=== PATIENT | female | born 1995 | race Caucasian/White ===

== ENCOUNTER 2020-02-13 12:26 | Inpatient (IN) | payer SELFPAY ==
[2020-02-13] VITALS (37 sets, daily range): BP systolic 116–176; BP diastolic 76–108; PULSE 74–100; TEMP 98.3
--- NOTE | 2020-02-13 13:00 | NUR ---
1235- Pt arrives on unit ambulatory with . Pt sent to hospital by Zoe Reza, Tack Puller Machine with elevated BP. Pt into bathroom to change into gown. 1244- Pt into bed, EFM and TOCO on and tacing. Pt denies VB, LOF, UCs. +FM. Pt states Zoe has been monitoring elevated BPs for the past week. Has had labs drawn. Pt denies, CABRERA, dizziness, light headedness, RUQ pain. Pt has 1+ pitting edema to BLE, slightly more on left. Pt states this has improved over the past few days. Pt brought records and lab results with her today from Zoe. Assessment completed, will monitor BP. Lab at bedside to obtain ordered labs.
[2020-02-13 13:18] LABS: COLLECTION METHOD CLEAN CATCH
[2020-02-13] MEDS ORDERED: ECHINACEA PURPU80 MG PO (13:18)
[2020-02-13] MEDS ORDERED: VITAMINC250CH (13:19)
[2020-02-13] MEDS ORDERED: GARLIC100 MG PO (13:19)
[2020-02-13] MEDS ORDERED: [UNRECOGNIZED DRUG - CODE] (13:21)
[2020-02-13] MEDS ORDERED: [UNRECOGNIZED DRUG - OTHER] (13:21)
[2020-02-13] MEDS ORDERED: PRENATAL (13:22)
[2020-02-13 13:23] LABS: BASO % 0.6 % (0.0-2.0); EOS # 0.1 (0.0-0.7); EOS % 1.7 % (0-4.0); GRAN # 3.6 (1.4-6.5); GRAN % 66.9 % (42.2-75.2); HEMOGLOBIN 11.8 g/dl (12.5-16.0); LYMPH # 1.3 (1.2-3.4); LYMPH % 23.4 % (20.0-51.0); MEAN CELL VOLUME 92 fl (80.0-100.0); MEAN CORPUSCULAR HEMOGLOBIN 31 pg (27.0-31.0); MEAN CORPUSCULAR HGB CONC 33 g/dl (33.0-37.0); MEAN PLATELET VOLUME 12.4 fl (7.4-10.4); MONO # 0.4 (0.1-0.6); PLATELET COUNT 159 K/mm3 (130-400); RED BLOOD COUNT 3.84 M/mm3 (4.10-5.30); REDCELL DISTRIBUTION WIDTH-CV 13.4 % (11.5-14.5)
[2020-02-13 13:26] LABS: HEMATOCRIT 35.4 % (37.0-47.0)
[2020-02-13 13:30] LABS: MUCOUS Present /lpf; PH 6 (5-8); URINE APPEARANCE Hazy; URINE BACTERIA None Seen /hpf; URINE BILIRUBIN Negative (NEGATIVE); URINE BLOOD Negative (NEGATIVE); URINE COLOR Yellow; URINE GLUCOSE Negative (NEGATIVE); URINE KETONE Negative (NEGATIVE); URINE LEUKOCYTE ESTERASE Trace (NEGATIVE); URINE NITRATE Negative (NEGATIVE); URINE PROTEIN(semi-quant) 3+ (NEGATIVE); URINE UROBILINOGEN Negative (NEGATIVE)
[2020-02-13 13:35] LABS: ALBUMIN 3.4 gm/dL (3.5-5.0); BILIRUBIN,TOTAL 0.3 mg/dL (0.0-1.0); CALCIUM 8.4 mg/dL (8.4-10.2); CREATININE, serum 0.68 (0.52-1.25); POTASSIUM 4.2 mmol/L (3.4-5.0); TOTAL PROTEIN 6.2 gm/dL (6.4-8.2)
--- NOTE | 2020-02-13 14:00 | NUR ---
1330- Dr Lyn on unit, updated on Pt status. reviews paperwork provided by Pt. Waiting for pending lab results. 1341- Dr Lyn and this RN at bedside. MD discusses Pt status. Questions encouarged and answered. Pt and spouse would like to discuss options. After some further discussion, Pt agrees to stay and start induction. Dr Lyn discusses that Pitocin can be started slow and then turned off later if Pt kicks in on her own. Pt agrees with this plan.
--- NOTE | 2020-02-13 15:58 | NUR ---
1500 report taken from Sussy CHIRINOS to assume care of this patient at this time. IV started in left hand and LR hung at this time. 1515 pitocin started at 2mu per protocol. and Pen G 5 hung per protocol for GBS+. all consents signed by patients .
--- NOTE | 2020-02-13 17:08 | NUR ---
1700 DR PARRA AT BEDSIDE TO DISCUSS AND TALK ABOUT INDUCTION WITH PATIENT AND .
--- NOTE | 2020-02-13 20:20 | NUR ---
2020 PT STARTING TO FEEL SOME OF HER CONTRACTIONS. DR PARRA IN TO VISIT. PT AND VERY RESISTENT TO ANY SUGGESTIONS CONCERNING AROM OR MEDICATION FOR ELEVATED B/P'S. REPOSITIONED TO TO REST.
[2020-02-14] VITALS (80 sets, daily range): BP systolic 129–179; BP diastolic 76–110; PULSE 68–162; TEMP 98.1–99.2
--- NOTE | 2020-02-14 01:40 | NUR ---
0140 TO HANDS AND KNEES PER PT REQUEST FOR COMFORT. BREATHING WELL WITH CONTRACTIONS.
--- NOTE | 2020-02-14 03:00 | NUR ---
0300 SVE /-2. LARGE BOW FELT. PITOCIN OFF PER DR PARRA ORDER. PT REQUESTING INTERMITTENT MONITERING.
--- NOTE | 2020-02-14 03:45 | NUR ---
0345 DR PARRA CALLED IN FOR PROGRESS REPORT. INFORMED OF PT SVE AND PITOCIN TURNED OFF AT 0300. ORDER GIVEN TO RESTART PITOCIN PER PROTOCOL AT 0500 IF CONTRACTIONS HAVE SPACED OUT AND LESSENED IN INTENSITY. 0355 EFM OFF PER PT REQUEST TO HAVE INTERMITTENT MONITERING.
--- NOTE | 2020-02-14 06:00 | NUR ---
0600 CONTRACTIONS PATTERN BECOMING EVERY FOUR TO SIX MINUTES. PT SLEEPING BETWEEN CONTRACTIONS. PITOCIN RESTARTED AT 2MU/MIN.
--- NOTE | 2020-02-14 09:49 | NUR ---
0930 DR PARRA AT BEDSIDE TO DISCUSS ALL OPTIONS WITH PATIENT AND . PATIENT HAS DECIDED TO LET DR PARRA AROM. 0935 SVE /-2. AROM WITH AMNIOHOOK,MODERATE AMOUNT CLEAR FLUID NOTED. NO ODOR. PITOCIN TURNED OFF PER DR PARRA ORDER. WILL LET PATIENT AMBULATE AND SHOWER.
--- NOTE | 2020-02-14 10:13 | NUR ---
1000 ALL IVF AND PITOCIN OFF AT THIS TIME, PER DR PARRA ORDER. PATIENT UP TO SHOWER AND WALK IN HALLS.
--- NOTE | 2020-02-14 10:39 | NUR ---
1030 UP AMBULATE IN HALLS WITH
--- NOTE | 2020-02-14 11:39 | NUR ---
1115 PATIENT RESTS IN BED BREATHS/CRIES THROUGH EACH CONTRACTION. BP 178/97. PATIENT WANTS TO GET UP TO SHOWER. EXPLAINED TO PATIENT THAT THIS NURSE DOES NOT FEEL COMFORTABLE LETTING HER OUT OF BED WITH HIGH BLOOD PRESSURES. TALK WITH PATIENT AND ABOUT APRESOLINE MEDICATION TO HELP WITH LOWERING BLOOD PRESSURE. PATIENT STATES SHE DOES NOT WANT ANY ADDITIONAL MEDS GIVEN AT THIS TIME. DOES NOT WANT BABY TO GET ANY MEDISCATIONS EITHER. THIS NURSE EXPLAINS TO PATIENT THAT IT IS NOT SAFE FOR HER TO GET OUT OF BED WITH HIGH BLOOS PRESSURES. DR PARRA CALLED AND UPDATED ON ALL ABOVE INFORMATION. NO NEW ORDERS AT THIS TIME OTHER THEN NOT SAFE FOR PATIENT OUT OF BED.
--- NOTE | 2020-02-14 11:52 | NUR ---
1150 PATIENT FEELS PRESSURE BUT DOES NOT WANT A VAGINAL EXAM DONE AT THIS TIME.
--- NOTE | 2020-02-14 12:51 | NUR ---
1225 PATIENT FEELS PRESSURE. DOES NOT REALLY WANT A VAGINAL EXAM DUE TO BEING RUPTURED. EDUACATED PATIENT AND THAT THIS IS ONLY WAY WE CAN KNOW IF DILATION HAS CHANGED. AGREED TO VAGINAL EXAM THIS TIME. SVE 7/100/-1, LARGE AMOUNT OF CLEAR FLUID NOTED WITH EXAM. PATIENT NEEDS TO GO TO BATHROOM. INSTRUCTED TO AMBULATE TO BED AND BACK ONLY DUE TO BP 173/104. THIS NURSE OFFERED TO GIVE APPRESOLINE AGAIN TO HELP LOWER BP. PATIENT AND AGAIN REFUSED FOR ANY ADDITIONAL MEDS GIVEN AT THIS TIME. 1240 PATIENT UP TO BATHROOM VOIDS WITHOUT DIFFICULTY AND ASSISTED BACK TO BED AT THIS TIME. PATIENT REMAINS VERY UNCOMFORTABLE AND CRIES THROUGH EACH CONTRACTION. ENCOURAGED PATIENT TO FIND A FOCAL POINT AND CONCENTRATE ON THAT TI HELP GET THROUGH EACH CONTRACTION. AT BEDSIDE.
--- NOTE | 2020-02-14 13:38 | NUR ---
1305 PATIENT VOMITS AT THIS TIME 1325 PATIENT REST ON LEFT SIDE AT THIS TIME. BP 148/84. EFM OFF AT THIS TIME PER PATIENT REQUEST. FHT 130 AND BABY HAS BEEN VERY ACTIVE
--- NOTE | 2020-02-14 14:17 | NUR ---
1415 PATIENT UP TO SHOWER PER PATIENT REQUEST AND DR ORDER. BP 159/100. BUT LAST 3 PRESSURES BETTER. 1330 148/84 1345 146/88 1355 160/98
--- NOTE | 2020-02-14 15:14 | NUR ---
1434 PATIENT CALLS THIS NURSE TO ROOM. PATIENT HAS DECIDED TO ALLOW FOR APRESOLINE 10 MG IV GIVEN NOW TO HELP WITH BLOOD PRESSURE TO HOPEFULLY ALLOW FOR INCREASE ACTIVITY FOR PATIENT AND INCREASE POSTIONS CHANGES.
--- NOTE | 2020-02-14 15:17 | NUR ---
1450 ASSIST PATIENT TO BED. EFM ON FHT 130,BABY VERY ACTIVE. CONTRACTIONS 2 MIN AND PALPATE FIRM, PATIENT BREATHS THROUGH EACH CONTRACTIONS. PEN G 2.5 MU HUNG AND APRESOLINE 10 MG IV GIVEN AT THIS TIME PER DR. AND PATIENTS REQUEST. SVE UNCHANGED. DR PARRA CALLED WITH ALL ABOVE INFORMATION. ORDERS TO MONITOR FOR 15 MORE MINUTES AND THEN ALLOW PATIENT TO AMBULATE IN HALLS
--- NOTE | 2020-02-14 15:44 | NUR ---
1530 PATIENT TO KNEE CHEST POSITION PER REQUEST. TOLERATES WELL. CONTINUES TO BREATH THROUGH CONTRACTIONS. PATIENT IS EXHAUSTED PER
--- NOTE | 2020-02-14 16:21 | NUR ---
1610 DR PARRA AT BEDSIDE SVE /0. PATIENT UP TO BIRTHING BALL. CONITINUES TO BREATH THROUGH CONTRACTIONS WITH AT BEDSIDE
--- NOTE | 2020-02-14 16:31 | NUR ---
1630 PATIENT UP AMBULATING PER DR ORDER AND PATIENT REQUEST.
--- NOTE | 2020-02-14 17:32 | NUR ---
1700 UP AMBULATE IN HALLS. 1715 DR PARRA AT BEDSIDE SVE 9/100/0. DR PARRA DISCUSSES OPTIONS WITH PATIENT AND AT THIS TIME. BP 177/106. PATIENT DOES NOT WANT ANY MORE BLOOD PRESSURE MEDS AT THIS TIME. DR PARRA STATES WILL CONTINUE TO MONITOR BLOOD PRESSURE FOR NOW. PATIENT REPOSITIONED TO LEFT SIDE. PATIENT BREATHS THROUGH CONTRACTIONS WITH AT BEDSIDE. VARIABLES NOTED WITH CONTRACTIONS.
--- NOTE | 2020-02-14 19:56 | NUR ---
pt. requests to be off the monitor at this time, per her plan of limited monitors. pt. taken off monitors. [facility] discussed with patient that in 30 minutes when I come to change her position to the other side in 30 minutes, that monitors will come back on to check on fhr. patient agreed to this. call light within reach.
--- NOTE | 2020-02-14 20:30 | NUR ---
RN TO BEDSIDE TO HELP ASSIST PATIENT INTO RL POSITION WITH LEFT LEG UP IN THE [place]. PER AGREEMENT EARLY, EFM AND TOCO BACK ON AND TRACING. PATIENT DENIES NEEDS AT THIS TIME. CALL LIGHT WITHIN REACH.
--- NOTE | 2020-02-14 23:55 | NUR ---
RN TO BEDSIDE TO INCREASE PITOCIN FROM 8 MU TO 10 MU. PUMP WAS SET AT 2 MU INSTEAD OF 8. DISCUSSED WITH NURSES THAT THIS NURSE THOUGHT THE FATHER MAY HAVE MESSED WITH THE PUMP. RN WAS THEN ADVISED TO MAKE A NOTE ABOUT IT AND MAKE SURE TO WATCH AND BE IN THE ROOM MORE FREQUENTLY.
[2020-02-15] VITALS (77 sets, daily range): BP systolic 112–188; BP diastolic 57–118; PULSE 102–169; TEMP 98.1–99.3
--- NOTE | 2020-02-15 02:20 | NUR ---
PATIENT CALLS OUT TO USE RESTROOM. DISCUSS EPIDURAL CONCERNS WITH PATIENT AND SPOUSE. PATIENT VERBALIZES CONCERNS WITH MEDICATION CROSSING PLACENTAL BARRIER. DISCUSSED WITH PATIENT OUT THE EPIDURAL DOES NOT DIRECTLY AFFECT THE FETUS, BUT THAT THEY FETUS CAN REACT TO A MATERNAL REACTION TO THE EPIDURAL, SUCH A CHANGE IN BLOOD PRESSURE. SPOUSE CONCERN FOR EPIDURAL IS THAT IT IS NOT [facility] AND WOMEN WENT THROUGH 3-4 DAY LABORS WITHOUT MEDICINE IN THE PAST AND "WERE FINE". DISCUSSED CONCERNS WITH MATERNAL AND STRESS. SPOUSE AND PATIENT REQUESTING TO BE OFF PITOCIN AND TO WALK HALLS. ADVISED I WOULD CALL ROLES AND UPDATE HER TO THIS AND GET BACK WITH THEM.
--- NOTE | 2020-02-15 04:00 | NUR ---
RN TO BEDSIDE TO CHECK TEMPERATURE. TEMPERATURE 99.7 AXILLARY. DISCUSSED MEDICATION FOR FEVERS. PATIENT AND SPOUSE WOULD LIKE TO WAIT AND SEE IF IT CONTINUES TO CREEP UP AND THEN DECIDE. DISCUSSED RISKS. PATIENT AND SPOUSE ALSO ASKED ABOUT WHAT DR. BENITEZ SAID ABOUT TURNING PITOCIN. OFF. DISCUSSED WIT THEM THAT IT CAN BE TURNED OFF, BUT DO TO VARIABLE DECELERATIONS OCCASIONALLY, DR. BENITEZ WANTS THE PATIENT TO REMAIN ON FHR MONITORS AND SHE IS NOT ALLOWED TO WALK THE HALLS BECAUSE OF THIS WELL. THEY AGREED FOR NOW AND SAID THAT THEY WOULD LIKE TO REST WITH NO INTERRUPTIONS UNTIL THE NEXT ANTIBIOTIC IS DUE, AROUND 7:30AM, AND THEN IF BABY LOOKS OKAY, WOULD LIKE TO WALK THE HALLS FOR A AN HOUR OR SO AND THEN MAYBE TAKE A SHOWER AND THEN BE CHECKED AND IF NO CHANGE STILL, THEY WILL CONSIDER AN EPIDURAL AFTER DISCUSSING OPTIONS ABOUT "TIME FRAME" OF 24 HOURS AFTER AROM WITH DOCTOR. THEY ALSO STATED THAT IF BPS START CONTINUE TO TREND IN THE "HIGH HIGHS" THEY WILL CONSIDER SOME MEDICATION TO BRING DOWN THE BPS. STATED I WOULD DISCUSS THIS WITH ROLES TO LET HER KNOW AND THAT FOR NOW, THE PITOCIN WILL BE OFF (0411) AND SOON THE ANTIBIOTICS ARE FINISHED RUNNING, THAT I WILL INT THE PATIENT AGAIN TO GIVE HER A LITTLE MORE "FREEDOM". THEY AGREED WITH THIS. CALL LIGHT WITHIN REACH AND DENIES FURTHER NEEDS AT THIS TIME.
[2020-02-15] MEDS ORDERED: PERCOCET 325 MG1 TA2 PO (06:30)
[2020-02-15] MEDS ORDERED: MOTRIN 800800 MG/TAB PO (06:30)
--- NOTE | 2020-02-15 07:39 | NUR ---
0730 AT BEDSIDE FOR PEN G TO BE GIVEN. PATIENT UP TO BATHROOM TOLERATES WELL BUT IS EXHAUSTED AND CAN BARELY KEEP EYES OPEN. DISCUSSED PATIENT INCREASE IN HEARTRATE WITH PATIENT. PATIENT STATES" ITS FINE IM JUST EXHAUSTED". SAO2 PROBE ON. SATS 97% HR 127
--- NOTE | 2020-02-15 10:30 | NUR ---
0810 DR HANLEY AT BEDSIDE, DISCUSSING ALL OPTIONS AND RISKS WITH PATIENT AND . ALL QUESTIONS ANSWERED BY DR HANLEY AT THIS TIME. DR HANLEY AT BEDSIDE FOR 25 MINUTES TALKING WITH PATIENT. BP 174/90 HR 118. FHT 135. CONTRACTIONS EVERY 6 MIN , PATIENT BREATHS THROUGH EACH CONTRACTION.
--- NOTE | 2020-02-15 10:33 | NUR ---
0830 DR HANLEY SVE /0 AT THIS TIME. SOME SWELLING NOTED TO CERVIX BY DISCUSSED MORE OPTIONS AND RISKS
--- NOTE | 2020-02-15 11:15 | NUR ---
0905 ASKED TO TALK WITH DR HANLEY AGAIN AT THIS TIME. DR HANLEY AT BEDSIDE TO TALK AND DISCUSS OPTIONS AGAIN, REMAINS IN ROOM FOR 20 MIN.
--- NOTE | 2020-02-15 11:17 | NUR ---
0910 BP 151/100 WILL SEE WHAT NEXT BLOOD PRESSURE IS AND THEN GIVE DOSE OF APRESOLINE PER DR BHAKTA.
--- NOTE | 2020-02-15 11:21 | NUR ---
0930 BP 161/111. APRESOLINE 10 MG IV GIVEN AT THIS TIME PER DR ORDER, AND AGREED BY PATIENT AND AT THIS TIME. STATES THAT NO CHANGE IN STRENGTH OF CONTRACTIONS TODAY
--- NOTE | 2020-02-15 11:22 | NUR ---
1885 TALKING WITH BETO (SEO STRATEGIST) ON PHONE AND JOSELITO (SECURITY GUARD DISPATCHER), THEY SUGGESTED TO TRY OPEN KNEE CHEST AT THIS TIME. PATIENT POSITIONED TO OPEN KNEE CHEST AT THIS TIME.
--- NOTE | 2020-02-15 11:25 | NUR ---
0916 PATIENT POSITIONED TO SQUAT POSITION WITH CONTRACTIONS. AT BEDSIDE. PATIENT PULSE REMAINS 130-140, ENCOURAGED PATIENT TO KEEP SAO2 PROBE ON SO WE CAN MONITOR MOMS HEARTRATE ALONG WITH BABIES. PATIENT GETTING MORE EXHAUSTED AT THIS TIME.
--- NOTE | 2020-02-15 11:39 | NUR ---
1015 LR 400 CC BOLUS GIVEN TO PATINET PER DR CARRASQUILLO ORDER FOR HR 156
--- NOTE | 2020-02-15 11:42 | NUR ---
1030 PATIENT SITTING UP IN CHAIR AT THIS TIME.
--- NOTE | 2020-02-15 13:16 | NUR ---
1100 up to bathroom, stands at bedside
--- NOTE | 2020-02-15 13:22 | NUR ---
1135 PATIENT UP AND AMBULATE IN HALLS PER DR HANLEY ORDER AND PATIENT REQUEST. 1145 PATIENT BACK TO BED. DR HANLEY AT BEDSIDE TO SVE /. CERVIX MORE SWOLLEN THEN LAST EXAM. DISCUSSES ALL OPTIONS AND QUESTIONS WITH PATIENT AND AT THIS TIME.
--- NOTE | 2020-02-15 13:25 | NUR ---
1200 PATIENT AND HAVE DECIDED TO HAVE [facility] [employer]ACE EPIDURAL TO GIVE PATIENT SOME RESTS AND TO TRY ALL OPTIONS POSSIBLE FOR VAGINAL . ALENA GALVAN CALLED AT THIS TIME FOR EPIDURAL PLACEMENT. 1215 ALENA AT BEDSIDE TALKS ABOUT RISKS AND PROCEDURE FOR EPIDURAL WITH PATIENT AND . PATIENT AGREES TO EPIDURAL PLACEMENT AT THIS TIME. PATIENT UP TO BATHROOM AT THIS TIME.
--- NOTE | 2020-02-15 13:44 | NUR ---
1240 EPIDURAL PLACED AT THIS TIME. TOLERATES WELL. SEE [facility] SPECIAL EDUCATION PAR[facility] PROFESSIONAL NOTES FOR QUESTIONS.
--- NOTE | 2020-02-15 14:27 | NUR ---
1315 PITOCIN STARTED AT 2 MU PER PROTOCOL. PATIENT AND AGREED TO ALLOW FOR PIOCIN TO START AGAIN. 1320 LOVING CATH PLACED AT THIS TIME. PATIENT TO HIGH LEFT SIDE
--- NOTE | 2020-02-15 14:48 | NUR ---
1430 SVE ANT LIP/90/0 LESS SWELLING NOTED TO CERIX. DR BAE UPDATED ON SVE TO UPDATE GOODPASTURE AT THIS TIME
--- NOTE | 2020-02-15 17:30 | NUR ---
0930 DR HANLEY AT BEDSIDE. HERNÁN CANALES WILL START PUSHING NOW
--- NOTE | 2020-02-15 17:33 | NUR ---
1630 PATIENT COMPLETE WILL START PUSHING. DR HANLEY AT BEDSIDE ALONG WITH THIS NURSE. 1645 CONTINUE TO PUSHES WITH EACH CONTRACTIONS. 1653 BABY GIRL BORN VIA BY DR HANLEY. BABY TO MOMS CHEST. THICK DARK GREEN MECONIUM NOTED AT DELIVERY. 1705 DELAYED CORD CLAMPING PER PATIENT AND HUSBANDS REQUEST. CORD CLAMPED BY AND CUT BY OF PATIENT AT THIS TIME. 1708 PLACENTA DELIVERED AND PITOCIN STARTED AT 333/HR PER PROTOCOL. IV INFILTRATED AT THIS TIME. IV RESTARTED IN LEFT WRIST AT THIS TIME ANF PITOCIN RESTARTED. 1710 FUNDUS BOGGY, LARGE AMOUNT OF FREE FLOW AND CLOTS NOTED. FUNDUS MASSAGED UNTIL FIRM. METHERGINE 0.2 MG IM IN RIGHT THIGH GIVEN BY [place] CHIRINOS. 1715 REPAIR OF LACERATION BY DR HANLEY AT THIS TIME. PAT TOLERATEES WELL. FUNDUS FIRM BUT CLOTS NOTED. 1716 HEMABATE IM GIVEN TO LEFT THIGH BY THIS NURSE AT THIS TIME. FUNDUS FIRM AND BLEEDING WNL AT THIS TIME. DR HANLEY REMAINS AT BEDSIDE.
--- NOTE | 2020-02-15 18:18 | NUR ---
1800 COVID SCREEN OFFERED TO PATIENT AND PATIENT REFUSES SCREENING
--- NOTE | 2020-02-15 22:00 | NUR ---
Pt up to the bathroom with standby assist and without complications. Pt was able to void. Stephanie-care done. Pt transferred ambulatory to room 208. Oriented to room, bed and call light within reach. Plan of care reviewed.
[2020-02-16] VITALS: BP 131/88; PULSE 110; TEMP 98.5
[2020-02-16 04:30] VITALS: BP 128/91; PULSE 108; TEMP 98.5
[2020-02-16 08:45] VITALS: BP 117/78; PULSE 104; TEMP 98.7
[2020-02-16 17:00] VITALS: BP 117/80; PULSE 104; TEMP 97.9
[2020-02-16 19:30] VITALS: BP 134/100; PULSE 92; TEMP 98.1
== END 2020-02-16 19:55 | disposition home or self-care (01) | DRG 768 ==
LOC: LDRO 12:26 → LDR 14:26 → OB 14:26
PROVIDERS: ADMIT Obstetrics & Gynecology
PROC: 10E0XZZ Delivery of Products of Conception, External Approach (ICD-10-PCS; principal; 2020-02-15)
PROC: 0TQDXZZ Repair Urethra, External Approach (ICD-10-PCS; 2020-02-15)
PROC: 10907ZC Drainage of Amniotic Fluid, Therapeutic from Products of Conception, Via Natural or Artificial Opening (ICD-10-PCS; 2020-02-15)
PROC: 0UQGXZZ Repair Vagina, External Approach (ICD-10-PCS; 2020-02-15)
DX: O14.93 Unspecified pre-eclampsia, third trimester (principal); Z37.0 Single live birth; O72.1 Other immediate postpartum hemorrhage; O71.5 Other obstetric injury to pelvic organs; O70.1 Second degree perineal laceration during delivery; O77.0 Labor and delivery complicated by meconium in amniotic fluid; O99.824 Streptococcus B carrier state complicating childbirth; Z3A.40 40 weeks gestation of pregnancy
CPT/HCPCS: J0360; J2210; J2540; J2590; J7120